=== PATIENT | female | born 1945 | race American Indian/Alaskan Native ===

== ENCOUNTER 2020-10-18 06:14 | Day surgery (SDC) | payer MEDICARE ==
[~2020-10-18 06:14] MED LIST: ceFAZolin/Water 2 GM/20 ML 2 GM/20 ML SYRINGE IV NR
[2020-10-18 07:00] LABS: Hematocrit 44.3 % (30.3-42.9); Hemoglobin 14.6 gm/dl (10.1-14.3); Mean Corpuscular HGB Conc 33 % (30-34); Mean Corpuscular Volume 95 fl (79-97); Platelet Count 321 K/mm3 (140-440); Red Blood Count 4.66 M/mm3 (3.65-5.03); Red Cell Distribution Width 16.2 % (13.2-15.2)
[2020-10-18] MEDS ORDERED: ONDANSETRON 4 MG/2 ML INJ IV PRN (07:09)
[2020-10-18] MEDS ORDERED: HYDROmorphone 1 MG/1 ML INJ IV PRN ×2 (07:09)
[2020-10-18 07:13] LABS: Calcium 11.4 mg/dL (8.4-10.2)
[2020-10-18] MEDS ORDERED: SODIUM CHLORIDE 0.9% 1000 ML 1,000 ML IV SCH (07:15)
[2020-10-18] MEDS ORDERED: LIDOCAINE MPF (2%) 20 MG/1 ML VIAL 5 ML ONE (07:20)
[2020-10-18] MEDS ORDERED: fentaNYL 100 MCG/2 ML INJ ONE ×2 (07:20→07:26)
[2020-10-18] MEDS ORDERED: propofoL 200 MG/20 ML VIAL IV ONE (07:20)
--- NOTE | 2020-10-18 07:22 | Anesthesia Day of Surgery ---
Anesthesia Day of Surgery - Day of Surgery Patient Examined: Yes Patient H&P Reviewed: Yes Patient is NPO: Yes Beta Blockers: Yes
--- NOTE | 2020-10-18 07:24 | Anesthesia Consultation ---
Anesthesia Consult and Med Hx Date of service: 10/18/20 - Airway Anesthetic Teeth Evaluation: Crowns, Partials ROM Head & Neck: Adequate Mental/Hyoid Distance: Adequate Mallampati Class: Class II Intubation Access Assessment: Good - Pre-Operative Health Status ASA Pre-Surgery Classification: ASA3 Nerve Block: IS (GA if needed) - Pulmonary Hx Respiratory Symptoms: No (+2FS) - Cardiovascular System Hx Hypertension: Yes Hx Coronary Artery Disease: No (Pt reports negative ETT/NST a year ago) - Gastrointestinal Hx Gastroesophageal Reflux Disease: No - Endocrine Hx Renal Disease: Yes (because of HTN) Hx End Stage Renal Disease: Yes (Last HD yesterday) Hx Liver Disease: No Hx Non-Insulin Dependent Diabetes: Yes (Diet controlled) - Hematic Hx Anemia: No Hx Sickle Cell Disease: No - Other Systems Hx Obesity: No
[2020-10-18] MEDS ORDERED: BUPIVACAINE/PF (0.5%) 5 MG/1 ML 30 ML VIAL INFILTRATI ONE ×2 (07:26→07:30)
[2020-10-18] MEDS ORDERED: HEPARIN 10,000 UNITS/10 ML VIAL ONE (07:30)
[2020-10-18] MEDS ORDERED: SODIUM CHLORIDE 0.9% 500 ML 500 ML ONE (07:30)
[2020-10-18] MEDS ORDERED: MIDAZOLAM 2 MG/2 ML INJ IV NR (08:00)
[2020-10-18] MEDS ORDERED: SODIUM CHLORIDE 0.9% 500 ML IVPB IRRIGATION ONE (08:36)
[2020-10-18] MEDS ORDERED: HEPARIN 10,000 UNITS/10 ML VIAL IR ONE (08:36)
[2020-10-18] MEDS ORDERED: SODIUM CHLORIDE 0.9% IRR 1,500 ML BOTTLE IR ONE (08:37)
--- NOTE | 2020-10-18 09:19 | Short Stay Summary ---
Short Stay Documentation Date of service: 10/18/20 Narrative H&P: See H&P - History H&P: obtained from office - Allergies and Medications Current Medications: Allergies metronidazole [From Flagyl] Adverse Reaction (Verified 10/10/20 12:08) Hives Home Medications Medication Instructions Recorded Confirmed Last Taken Type Aspirin 81 mg PO DAILY 10/10/20 10/10/20 Unknown History Breo Ellipta 200-25 Mcg INH 1 puff INHALATION DAILY 10/10/20 10/10/20 Unknown History Bystolic 20 mg PO DAILY 10/10/20 10/10/20 Unknown History Colchicine 4 mg PO DAILY 10/10/20 10/10/20 Unknown History Spiriva 2.5 mg INHALATION BID 10/10/20 10/10/20 Unknown History traMADoL 50 mg PO Q4HR PRN 10/10/20 10/10/20 Unknown History Active Medications Hydromorphone HCl (Hydromorphone 1 Mg/1 Ml Inj) 0.25 mg IV Q10MIN PRN PRN Reason: Pain, Moderate (4-6) Stop: 10/18/20 23:00 Hydromorphone HCl (Hydromorphone 1 Mg/1 Ml Inj) 0.5 mg IV Q10MIN PRN PRN Reason: Pain , Severe (7-10) Stop: 10/18/20 23:00 Cefazolin Sodium (Ancef/Sterile Water 2 Gm/20 Ml) 2 gm in 20 mls @ 80 mls/hr IV PREOP NR; Protocol Stop: 10/18/20 23:59 Sodium Chloride (Nacl 0.9% 1000 Ml) 1,000 mls @ 42 mls/hr IV DIRECT RHINA Midazolam HCl (Midazolam 2 Mg/2 Ml Inj) 2 mg IV PREOP NR Stop: 10/18/20 23:59 Ondansetron HCl (Ondansetron 4 Mg/2 Ml Inj) 4 mg IV ONCE PRN PRN Reason: Nausea And Vomiting Stop: 10/18/20 16:00 - Brief post op/procedure progress note Date of procedure: 10/18/20 Pre-op diagnosis: End-Stage Renal Disease Post-op diagnosis: same Procedure: Creation of Left Brachiocephalic Arteriovenous Fistula Anesthesia: MAC, regional Surgeon: GIOVANNY AWAD Estimated blood loss: minimal Pathology: none Condition: stable - Disposition Condition at discharge: Good Disposition: DC-01 TO HOME OR SELFCARE Short Stay Discharge Plan Activity: other (No heavy lifting with left arm for 2 weeks. Please use a stress ball with left hand as often as possible.) Wound: open to air, keep clean and dry, other (Okay to wash the left arm wound with soap and water but do not soak in water for 2 weeks.) Follow up with: GIOVANNY AWAD MD [Staff Physician] - 14 Days Prescriptions: HYDROcodone/APAP 7.5-325 [[place] 7.5/325] 1 each PO Q6HR PRN #40 tablet PRN Reason: Pain
--- NOTE | 2020-10-18 09:20 | Operative Report ---
Operative Report Operative Report: Date of procedure: 10/19/2019 Pre-operative diagnosis: End-Stage Renal Disease Post-operative diagnosis: End-Stage Renal Disease Procedure(s): Creation of Left brachial Artery to Cephalic Vein Arteriovenous Fistula Surgeon: Celso Yoo MD Yeast Pumper: None Anesthesia: Regional/MAC EBL: Minimal Counts: Correct Complications: None Condition: Stable Findings: Successful creation of left brachiocephalic arteriovenous fistula with palpable thrill and palpable radial pulse at the completion of the case. Specimen: None Indications: The patient is a 75-year-old female with a history of end-stage renal disease who is in need of long-term dialysis access. Vein mapping demonstrated that her left cephalic vein was adequate for creation of an arteriovenous fistula. She was given the risk, benefits, and alternative procedures and consented to the procedure. Description of Procedure: The patient had a regional block of the patient's left arm was performed in the preoperative area prior to being transported to the operating room. Once the regional block was performed the patient was transported to the operating room and adequate sedation was given. When the patient was sedated a timeout was performed and the patient's left arm was then prepped and draped in normal sterile fashion. A transverse incision was then made and carried down to the cephalic vein using sharp dissection. The vein was dissected out both proximally and distally and suture ligated and divided distally. I flushed the vein with heparinized saline and flow was controlled with a bulldog clamp. I then dissected out the brachial artery through this incision circumferentially both proximal and distal and controlled the artery with vessel loops. I systemically heparinized the patient with 3000 units of heparin IV and used angled DeBakey clamps to control flow through the artery. I created an arteriotomy using an 11 blade and Ambrosio scissors. I created an end to side anastomosis between the cephalic vein and brachial artery using a 6-0 Prolene in running fashion. Prior to completing the anastomosis I flashed the artery both proximally and distally and then flushed the anastomosis with heparinized saline to remove any debris. I then completed the anastomosis and removed all clamps allowing flow into the fistula which had an adequate thrill. I achieved hemostasis with a combination of Quick Clot and electrocautery. Once hemostasis had been achieved I closed the wound in 2 layers using a 3-0 Vicryl in a running fashion in the deep dermal layer and a 4-0 Monocryl in running fashion in the subcuticular layer. I then dressed the wound with Dermabond. The patient tolerated the procedure well. All sponge, needle, and instrument counts were correct. The patient was taken to the recovery area in stable condition.
[2020-10-18] MEDS ORDERED: hydrALAZINE 20 MG/1 ML INJ IV ONE (09:36)
[2020-10-18 10:36] VITALS: BP 140/74
--- NOTE | 2020-10-18 15:18 | Post Anesthesia Evaluation ---
- Post Anesthesia Evaluation Patient Participated: Yes Airway Patent: Yes Stable Respiratory Function: Yes Nausea/Vomiting: No Temp > 96.8F: Yes Pain Manageable: Yes Adequeate Hydration: Yes Anesthesia Complications: No Block Receding Appropriately: Not Applicable Patient on Ventilator: No
== END 2020-10-18 10:25 | disposition home or self-care (01) ==
LOC: OR 06:14
PROVIDERS: ATTEND Surgery Vascular Surgery
DX: I12.0 Hypertensive chronic kidney disease with stage 5 chronic kidney disease or end stage renal disease (principal); E11.22 Type 2 diabetes mellitus with diabetic chronic kidney disease; N18.6 End stage renal disease; E78.00 Pure hypercholesterolemia, unspecified; Z90.710 Acquired absence of both cervix and uterus; Z96.642 Presence of left artificial hip joint; Z98.890 Other specified postprocedural states; Z79.899 Other long term (current) drug therapy; Z79.82 Long term (current) use of aspirin
CPT/HCPCS: 36415; 36821; 64415; 76942; 80048; 82962; 85027; C1757; J0360; J0690; J1644; J2250; J2704; J3010; J7030; J7040; 64450

== ENCOUNTER 2022-02-15 06:54 | Day surgery (SDC) | payer MEDICARE ==
[2022-02-15] MEDS ORDERED: HEPARIN/NS 5000 UNIT/500ML 1,000 ML IR ONE (08:09)
[2022-02-15] MEDS: LIDOCAINE (2%) 20 MG/1 ML VIAL 50 ML MDV INFILTRATI ONE ×2 (08:15→09:04)
[2022-02-15] MEDS: SODIUM CHLORIDE 0.9% 500 ML 500 ML IV SCH ×2 (08:15→08:46)
[2022-02-15] MEDS: HEPARIN 10,000 UNITS/10 ML VIAL ONE ×2 (08:15→09:15)
[2022-02-15] MEDS ORDERED: fentaNYL 100 MCG/2 ML INJ ONE (08:24)
[2022-02-15] MEDS ORDERED: MIDAZOLAM 2 MG/2 ML INJ ONE (08:24)
--- NOTE | 2022-02-15 08:48 | Short Stay Summary ---
Short Stay Documentation Date of service: 02/15/22 - History Principal diagnosis: Malfunctioning dialysis access Past Medical History: dialysis, ESRD Past Surgical History: Other (Left arm AV graft) - Allergies and Medications Current Medications: Allergies gabapentin Allergy (Verified 02/15/22 08:11) hallucination metronidazole [From Flagyl] Adverse Reaction (Verified 10/10/20 12:08) Hives Home Medications Medication Instructions Recorded Confirmed Last Taken Type Aspirin 81 mg PO DAILY 10/10/20 10/18/20 10/17/20 05:00 History Breo Ellipta 200-25 Mcg INH 1 puff INHALATION DAILY 10/10/20 10/18/20 07/01/20 08:00 History Bystolic 20 mg PO DAILY 10/10/20 10/18/20 10/18/20 04:00 History Colchicine 4 mg PO DAILY 10/10/20 10/18/20 10/17/20 22:00 History Spiriva 2.5 mg INHALATION BID 10/10/20 10/18/20 10/10/20 08:00 History traMADoL 50 mg PO Q4HR PRN 10/10/20 10/18/20 10/10/20 08:00 History HYDROcodone/APAP 7.5-325 [[place] 1 each PO Q6HR PRN #40 tablet 10/18/20 Unknown Rx 7.5/325] Active Medications Sodium Chloride (Nacl 0.9% 500 Ml) 500 mls @ 50 mls/hr IV DIRECT RHINA Stop: 02/15/22 20:00 Last Admin: 02/15/22 08:46 Dose: 50 mls/hr - Physical exam General appearance: no acute distress HEENT: Atraumatic Lungs: Normal air movement Breasts: deferred Heart: Regular rate Female Genitourinary: deferred Rectal Exam: deferred Extremities: abnormal (Thrombosed left upper arm AV fistula) Neurological: Normal speech, Normal tone - Brief post op/procedure progress note Date of procedure: 02/15/22 Pre-op diagnosis: Thrombosed dialysis access Post-op diagnosis: same Procedure: Declot of dialysis access, venoplasty Anesthesia: local Surgeon: ROMMEL WHITE Estimated blood loss: minimal Pathology: none Condition: stable - Disposition Condition at discharge: Good Disposition: 01 HOME / SELF CARE / HOMELESS Short Stay Discharge Plan Activity: advance as tolerated Weight Bearing Status: Weight Bear as Tolerated Diet: renal Wound: keep clean and dry, per your surgeon's advice Follow up with: LATIA ARAMBULA MD [Primary Care Provider] - 7 Days
[2022-02-15] MEDS ORDERED: ALTEPLASE 2 MG INJ ONE (09:16)
[2022-02-15] MEDS ORDERED: WATER FOR INJ Sterile (PF) 10 ML ONE (09:16)
--- NOTE | 2022-02-15 09:54 | Operative Report ---
Operative Report Operative Report: Exam: Left upper extremity fistulogram, thrombectomy, venoplasty Clinical indication: Patient with a history of thrombosed left upper arm AV fistula Date: 02/15/2022 Procedure: Following an explanation of the risk, benefits and alternatives; written informed consent was obtained. The patient was brought to the angiographic suite and placed in supine position on the examination table. Initial evaluation of the arm demonstrated a thrombosed left upper arm fistula. The patient's left upper arm was prepped and draped in the usual sterile fashion. 2% lidocaine was used for anesthesia. The fistula was cannulated under ultrasound guidance towards the venous outflow using a 7 cm 21-gauge needle. A 0.018 guidewire was advanced centrally. The needle was removed and using trocar technique, a 7 Cyp[place] sheath placed. Access towards the arterial anastomosis was obtained in a similar fashion and an add itional 6 [place] sheath placed. A vertebral catheter was then advanced up the arm over the guidewire under fluoroscopy. In the area of the shoulder, there is previously placed stents that are crushed. The stents extend throughout the cephalic arch. The catheter and guidewire were then advanced through the crushed stents into the central veins. The visualized central veins are widely patent. There is thrombus extending from the stents in the cephalic arch this sheath insertion site. An 8 mm balloon was then advanced over the guidewire and used to open up the crushed stents. Of 4 mg of tPA was infused throughout the graft and allowed to dwell. A still cleaner tube device was then advanced through the venous sheath. Thrombectomy was then performed from just proximal to the previously placed stents. The vertebral catheter was then advanced over the guidewire through the arterial sheath through the arterial anastomosis into the brachial artery. Contrast was injected. This demonstrates some flow in the proximal aspect of the fistula however, the fistula is only patent to the venous sheath. The vertebral catheter was removed over the guidewire and a Cody balloon used to sweep the arterial plug and proximal aspect of the graft free. Stenosis is present within the middle aspect of the fistula secondary to repeated cannulation. An 8 mm x 40 mm balloon was then advanced over the guidewire through the venous sheath across the stenosis at the access sites. Venoplasty was performed to 18atm for 1 minute. Venoplasty was then performed up the cephalic vein. There are 2 additional areas of stenosis just proximal to the stents which were treated with balloon venoplasty using an 8 mm x 40 mm balloon insufflated to nominal atmospheres for 30 seconds. At this point, the fistula demonstrated pulsatility. The fistula was then swept free from residual thrombus using the Cody balloon through the venous sheath. At this point, a strongly palpable thrill was present. The vertebral catheter was advanced over the guidewire through the arterial anastomosis and contrast injected. The arterial anastomosis widely patent. Flow is preserved on the forearm. Additional venogram was performed through the venous sheath to image the rest of the cephalic vein through the cephalic arch. The previously crush stents are widely patent with no flow-limiting stenosis. At this point, the catheters, guidewires and sheaths were removed and hemostasis achieved at the access site using 4-0 Vicryl suture, manual compression and Dermabond. Sterile dressings were applied. The patient tolerated the procedure well. There were no immediate postprocedural complications. Conscious sedation was performed in the guidance of radiologic nursing. Continuous cardiopulmonary monitoring was utilized. Impression: 1) Left arm fistulogram brachiocephalic fistula demonstrating thrombus from the arterial anastomosis to previously placed stent in the cephalic arch which are crushed. 2) Venoplasty to reapposed the stents and treat stenoses in the venous outflow as well as the cannulation sites as described. 3) Pharmacological and mechanical thrombectomy.
[2022-02-15] MEDS ORDERED: HYDROcodone/ACETAMINOPHEN 5-325 MG TAB ONE (10:33)
[2022-02-15] MEDS ORDERED: HYDROcodone/ACETAMINOPHEN 5-325 MG TAB PO ONE (11:00)
[2022-02-15 13:12] VITALS: BP 155/72
== END 2022-02-15 12:30 | disposition home or self-care (01) ==
LOC: CATHLABREC 06:54
PROVIDERS: ATTEND Radiology Diagnostic Radiology
DX: T82.868A Thrombosis due to vascular prosthetic devices, implants and grafts, initial encounter (principal); I12.0 Hypertensive chronic kidney disease with stage 5 chronic kidney disease or end stage renal disease; E11.22 Type 2 diabetes mellitus with diabetic chronic kidney disease; N18.6 End stage renal disease; E78.00 Pure hypercholesterolemia, unspecified; M19.90 Unspecified osteoarthritis, unspecified site; Z88.8 Allergy status to other drugs, medicaments and biological substances; Z79.899 Other long term (current) drug therapy; Z98.49 Cataract extraction status, unspecified eye; Z90.710 Acquired absence of both cervix and uterus; Z96.642 Presence of left artificial hip joint; Z98.890 Other specified postprocedural states; Y82.8 Other medical devices associated with adverse incidents; Y92.89 Other specified places as the place of occurrence of the external cause
CPT/HCPCS: 36415; 36905; 84132; 99156; 99157; C1725; C1757; C1769; C1894; J1644; J2250; J2997; J3010; J3490; J7040; Q9967